=== PATIENT | female | born 1985 | race Asian ===

== ENCOUNTER → 2020-09-05 | Outpatient (CLI) | payer OTHER ==
[2020-09-05 07:27] LABS: HEMOGLOBIN 11.7 gm/dl (12.3-15.3); RED BLOOD COUNT 4.9 M/UL (4.00-5.10); WHITE BLOOD COUNT 5.5 K/UL (4.5-11.0)
[2020-09-05 07:47] LABS: BUN/CREATININE RATIO 14 (0-10)
== END ==
LOC: LAB 06:48
PROVIDERS: Family Medicine
DX: M25.562 Pain in left knee (principal); M79.652 Pain in left thigh
CPT/HCPCS: 73564; 80053; 85027; 85379

== ENCOUNTER → 2020-10-03 | Outpatient (CLI) | payer OTHER ==
[2020-10-03 08:29] LABS: HEMOGLOBIN 11.4 gm/dl (12.3-15.3); RED BLOOD COUNT 4.79 M/UL (4.00-5.10); WHITE BLOOD COUNT 5.2 K/UL (4.5-11.0)
== END ==
LOC: LAB 07:50
PROVIDERS: Internal Medicine
DX: D64.9 Anemia, unspecified (principal)
CPT/HCPCS: 82607; 82728; 83540; 83550; 85025; 85045

== ENCOUNTER → 2021-01-11 | Outpatient (CLI) | payer OTHER ==
[2021-01-11 14:22] LABS: HEMOGLOBIN 12.7 gm/dl (12.3-15.3); RED BLOOD COUNT 5.19 M/UL (4.00-5.10); WHITE BLOOD COUNT 8.6 K/UL (4.5-11.0)
== END ==
LOC: LAB 13:30
PROVIDERS: Family Medicine
DX: D64.9 Anemia, unspecified (principal)
CPT/HCPCS: 36415; 82607; 82728; 83540; 83550; 85027; 85045

== ENCOUNTER → 2021-02-12 | Outpatient (CLI) | payer OTHER ==
[2021-02-12 11:30] LABS: HEMOGLOBIN 12.1 gm/dl (12.3-15.3); RED BLOOD COUNT 4.84 M/UL (4.00-5.10); WHITE BLOOD COUNT 8.6 K/UL (4.5-11.0)
== END ==
LOC: LAB 10:50
PROVIDERS: Family Medicine
DX: R05.9 Cough, unspecified (principal); D50.9 Iron deficiency anemia, unspecified
CPT/HCPCS: 36415; 71046; 82728; 83540; 83550; 85025; 85045

== ENCOUNTER 2021-02-17 10:34 | Emergency (ER) | payer OTHER ==
[2021-02-17 11:35] LABS: RED BLOOD COUNT 4.76 M/UL (4.00-5.10); WHITE BLOOD COUNT 7.9 K/UL (4.5-11.0)
[2021-02-17 12:36] LABS: BUN/CREATININE RATIO 14 (0-10)
[2021-02-17] MEDS ORDERED: MEDROL DOSEPAK 24 MG PO (14:48)
[2021-02-17] MEDS ORDERED: NORFLEX 100 MG100 MG PO (14:48)
== END 2021-02-17 15:00 | disposition home or self-care (01) ==
LOC: ER1 10:34
PROVIDERS: Physician Assistant Medical
DX: R07.89 Other chest pain (principal); Z20.822 Contact with and (suspected) exposure to COVID-19
CPT/HCPCS: 71101; 80053; 82550; 82553; 83874; 84484; 85025; 85379; 93005; 99285; U0002

== ENCOUNTER 2021-03-02 16:03 | Emergency (ER) | payer OTHER ==
[~2021-03-02 16:03] MED LIST: MEDROL DOSEPAK 24 MG PO; NORFLEX 100 MG100 MG PO
[2021-03-02 17:06] LABS: HEMOGLOBIN 12.8 gm/dl (12.3-15.3); RED BLOOD COUNT 5.07 M/UL (4.00-5.10); WHITE BLOOD COUNT 10.5 K/UL (4.5-11.0)
[2021-03-02 18:27] LABS: BUN/CREATININE RATIO 12 (0-10)
== END 2021-03-02 22:44 | disposition home or self-care (01) ==
LOC: ER1 16:03
PROVIDERS: Nurse Practitioner
DX: R07.89 Other chest pain (principal); R00.0 Tachycardia, unspecified; Z20.822 Contact with and (suspected) exposure to COVID-19
CPT/HCPCS: 71045; 80053; 81001; 82550; 82553; 83605; 83874; 84484; 84703; 85025; 85379; 85610; 85730; 87040; 93005; 96374; 96375; 99285; J1885; J2270; J2405; Q9967; U0002

== ENCOUNTER → 2021-08-10 | Outpatient (CLI) | payer OTHER | LOC: KOH-I 09:08 | DX: M79.671 Pain in right foot (principal) | CPT/HCPCS: 73630 ==